=== PATIENT | female | born 1950 | race Caucasian/White ===

== ENCOUNTER 2017-05-19 13:22 | Outpatient (CLI) | payer OTHER ==
[~2017-05-19 13:22] MED LIST: CLONAZEPAM1 MG PO; COREG PO; DOCUSATE SODIU100 MG PO; ENALAPRIL MALEAT5 MG PO; GRALISE600 MG PO; LASIX20 MG PO; LIPITOR20 MG PO; METFORMIN HCL500 M1 PO; PERCOCET 5-3251 EACH PO; [UNRECOGNIZED DRUG - OTHER] PO
== END 2017-05-19 13:30 | disposition home or self-care (01) ==
LOC: RAD 501 13:22
DX: M51.36 Other intervertebral disc degeneration, lumbar region (principal); M50.00 Cervical disc disorder with myelopathy, unspecified cervical region; Z98.1 Arthrodesis status

== ENCOUNTER 2019-03-09 06:00 | Day surgery (SDC) | payer OTHER | END 2019-03-09 10:15 | disposition home or self-care (01) | LOC: AMB-ENDOS 06:00 | DX: K63.5 Polyp of colon (principal); K57.30 Diverticulosis of large intestine without perforation or abscess without bleeding; K64.1 Second degree hemorrhoids ==

== ENCOUNTER 2019-05-10 08:30 | Inpatient (IN) | payer OTHER ==
[~2019-05-10] VITALS: Ht 160 cm; Wt 72.6 kg
[2019-05-10] MEDS ORDERED: METFORMIN HCL1000 M2 (11:10)
[2019-05-10] MEDS ORDERED: COZAAR25 MG (11:10)
[2019-05-15] MEDS ORDERED: ALDACTONE25 MG PO (08:10)
[2019-05-15] MEDS ORDERED: CARVEDILOL6.25 MG PO (08:10)
== END 2019-05-18 16:38 | disposition home or self-care (01) | DRG 331 ==
LOC: O/R 05-15 05:00 → SURH 05-15 05:00 → O/R 05-15 08:30 → SURH 05-15 11:00
PROVIDERS: ADMIT Colon & Rectal Surgery
PROC: 07TB4ZZ Resection of Mesenteric Lymphatic, Percutaneous Endoscopic Approach (ICD-10-PCS; 2019-05-15)
PROC: 0DTN4ZZ Resection of Sigmoid Colon, Percutaneous Endoscopic Approach (ICD-10-PCS; principal; 2019-05-15 11:00)
DX: K63.5 Polyp of colon (principal); F41.9 Anxiety disorder, unspecified; I12.9 Hypertensive chronic kidney disease with stage 1 through stage 4 chronic kidney disease, or unspecified chronic kidney disease; E11.22 Type 2 diabetes mellitus with diabetic chronic kidney disease; N18.2 Chronic kidney disease, stage 2 (mild); K57.30 Diverticulosis of large intestine without perforation or abscess without bleeding

== ENCOUNTER 2020-05-16 06:46 | Day surgery (SDC) | payer OTHER ==
[~2020-05-16 06:46] MED LIST changes: +ALDACTONE25 MG PO; +CARVEDILOL6.25 MG PO; +COZAAR25 MG; +METFORMIN HCL1000 M2
== END 2020-05-16 12:47 | disposition home or self-care (01) ==
LOC: AMB-ENDOS 06:46
PROVIDERS: ATTEND Colon & Rectal Surgery
DX: D12.4 Benign neoplasm of descending colon (principal); K64.1 Second degree hemorrhoids; Z20.828 Contact with and (suspected) exposure to other viral communicable diseases